=== PATIENT | male | born 1955 | race Caucasian/White ===

== ENCOUNTER → 2017-11-24 | Outpatient (CLI) | payer OTHER ==
[~2017-11-24] MED LIST: LISI-587 PO; LORA2TAB PO; MAGN250T3 PO; PERC5TAB12 PO; POTA99TA12 PO; TAMS0.4C67 PO; VIAG100T PO; ZOLP10TA3 PO
--- NOTE | 2017-11-24 16:40 | RADRPT ---
EXAM DATE/TIME: 11/24/2017 16:10 [facility] COMPARISON: No previous studies available for comparison. INDICATIONS : Right hand pain for the past month. No prior injury. MEDICAL HISTORY : None. SURGICAL HISTORY : None. ENCOUNTER: Initial ACUITY: 1 month PAIN SCORE: 5/10 LOCATION: Right hand. FINDINGS: Three view examination of the right hand demonstrates no soft tissue swelling, dislocation, or fractu re. The carpal bones appear intact. The interphalangeal and metacarpophalangeal joints are intact. Bony mineralization is normal. CONCLUSION: Negative for fracture or dislocation. Follow up in 7-10 days is suggested if symptoms persist. Nicolas Choi MD FACR on November 24, 2017 at 16:37 Board Certified Radiologist. This report was verified electronically.
--- NOTE | 2017-11-24 16:40 | RADRPT ---
EXAM DATE/TIME: 11/24/2017 16:13 [facility] COMPARISON: No previous studies available for comparison. INDICATIONS : Right wrist pain on and off for the past month. No prior trauma. MEDICAL HISTORY : None. SURGICAL HISTORY : None. ENCOUNTER: Initial ACUITY: 1 month PAIN SCORE: 5/10 LOCATION: Right wrist. FINDINGS: Three view examination of the right wrist demonstrates no soft tissue swelling, dislocation, or fract ure. The carpal bones are in normal alignment. The joint spaces are maintained. Bony mineralizatio n is normal. CONCLUSION: Negative for fracture or dislocation. Follow up in 7-10 days is suggested if symptoms persist. Nicolas Choi MD FACR on November 24, 2017 at 16:38 Board Certified Radiologist. This report was verified electronically.
--- NOTE | 2017-11-24 16:41 | RADRPT ---
EXAM DATE/TIME: 11/24/2017 16:15 [facility] COMPARISON: No previous studies available for comparison. INDICATIONS : Left foot pain on and off for the past few years. Pain near toes. MEDICAL HISTORY : None. SURGICAL HISTORY : None. ENCOUNTER: Initial ACUITY: >1 year PAIN SCORE: 5/10 LOCATION: Left toes. FINDINGS: Degenerative changes are seen about the hindfoot. Minimal vascular calcifications are noted. Hallux valgus deformity is noted degenerative changes about the great toe. Fracture is not appreciat ed. CONCLUSION: Negative for fracture. Moderate degenerative changes. Nicolas Choi MD FACR on November 24, 2017 at 16:38 Board Certified Radiologist. This report was verified electronically.
== END ==
LOC: HRAD 15:46
DX: M25.531 Pain in right wrist (principal); M79.675 Pain in left toe(s)
CPT/HCPCS: 73110; 73130; 73630